=== PATIENT | male | born 1980 | race African-American/Black ===

== ENCOUNTER 2020-06-17 04:38 | Emergency (ER) | payer SELFPAY ==
[2020-06-17] MEDS ORDERED: NAPROXEN500 MG PO (05:46)
== END 2020-06-17 06:05 | disposition home or self-care (01) ==
LOC: FER 04:38
DX: M17.12 Unilateral primary osteoarthritis, left knee (principal); M25.572 Pain in left ankle and joints of left foot; I10 Essential (primary) hypertension; W17.2XXA Fall into hole, initial encounter
CPT/HCPCS: 73564; 73610